=== PATIENT | male | born 1980 | race African-American/Black ===

== ENCOUNTER 2017-11-02 21:00 | Emergency (ER) | payer BC ==
[2017-11-02 21:07] VITALS: BP 153/85; BMI 44.0
[2017-11-02 21:57] LABS: BILIRUBIN,URINE NEGATIVE (NEGATIVE); BLOOD/HEMOGLOBIN,URINE 3+ (NEGATIVE); GLUCOSE, URINE NEGATIVE (NEGATIVE); KETONES,URINE NEGATIVE (NEGATIVE); LEUKOCYTE ESTERASE ,URINE 3+ (NEGATIVE); NITRITES,URINE NEGATIVE (NEGATIVE); PH,URINE 6.5 (5.0 - 8.0); PROTEIN,URINE 1+ (NEGATIVE); UROBILINOGEN,URINE NORMAL (NORMAL)
[2017-11-02] MEDS ORDERED: ROCEPHIN VIAL 500 MG 500 MG in NS 25 ML IV 25 ML IV ONE (22:02)
[2017-11-02] MEDS ORDERED: VIBRAMYCIN PO ONE ×2 (22:03→22:14)
[2017-11-02] MEDS ORDERED: LEVAQUIN TAB 500 MG PO STA (22:03)
--- NOTE | 2017-11-02 22:08 | DR.UPM ---
HPI - Time Seen Time seen: 22:04 - PCP Primary Care Physician: pipo - Complaint Chief Complaint Doctors Comments: Patient is complaining of dysuria for the past three days getting worst today with penile discharge and irritation at the urethra opening. States he has not had any new sexual partners and has not had any unprotected sex except with his . states she had a vaginal bacteria infection recently and she took antibiotics and was told not to have sex until she finished all the antibiotics and to use a condom but her spouse did not wait until she finished the antibiotics and they has sex during her treatment. Patient denies fever, chills, nausea, vomiting or hematuria. states he has never had any veneral diseases. Chief Complaint:: patient complained of having pain on urination and also has been having irritaion and discharge from penis since sunday - Reviewed Nurses Notes Reviewed: Yes - Source History Provided: Patient - Mode of Arrival Mode of Arrival: Ambulatory - Timing Onset of Chief Complaint: 11/07/17 - Duration Duration: Constant How lon Duration: Days Has not urinated for: 1 Min/Hrs: Hours - Context Onset: Spontaneous Urinary Symptoms: Dysuria, Frequency, Penile discharge History of: None - Severity Pain: Mild Inability to Void: None - Location Pain Location: Suprapubic - Quality Penile Discharge: White - Modifying Factors Medications: None - Associated Signs and Symptoms Associated Signs and Symptoms: None PMH - PMH Past Medical History: Yes Past Medical History: Dyslipidemia, GERD, Hypertension, [place] Past Surgical History: Yes Surgical History: CABG/Valve Surgery - Family History History of Family Medical Conditions: Yes Family Medical History: [place], Hypertension - Social History Does any household member use tobacco: No Alcohol Use: None Do you use any recreational Drugs:: No Lives With: Alone Lives Where: Home - infectious screening In the last 2 months have you had wt loss of >10#?: NO Have you had fever, night sweats or hemotysis?: No Have you traveled outside the country in the last 6 months?: No Isolation: Standard ROS - Review of Systems Constitutional: No Symptoms Reported. negative: See HPI, Chills, Diaphoresis, Fever, Malaise, Weakness, Irritable, Fatigue, Loss of Appetite, Other Eyes: No Symptoms Reported ENTM: No Symptoms Reported Respiratoy: No Symptoms Reported. negative: See HPI, Productive Cough, Non- Productive Cough, Moist Cough, Dry Cough, Hacking Cough, Barking Cough, Brassy Cough, Orthopnea, Short of Breath, Stridor, Wheezing, Hemoptysis, Other Cardiovascular: No Symptoms Reported. negative: See HPI, Chest Pain, Edema, Palpitations, Syncope, Cyanosis, Skin Mottling, Other Gastrointestinal/Abdominal: No Symptoms Reported. negative: See HPI, Abdominal Pain, Constipation, Diarrhea, Nausea, Vomiting, Food Intolerance, Other Genitourinary: No Symptoms Reported, Discharge, Dysuria, Frequency, Pain Neurological: No Symptoms Reported. negative: See HPI, Anxiety, Depressed, Emotional Problems, Headache, Numbness, Paresthesia, Pre-existing Deficit, Seizure, Tingling, Tremors, Weakness, Dizziness, Problems Walking, Speech Problem, Other Musculoskeletal: No Symptoms Reported Integumentary: No Symptoms Reported. negative: See HPI, Change in Color, Change in Hair/Nails, Dryness, Lesions, Lumps, Rash, Itching, Wound, Bruises, Juandice, Other Hematologic/Lymphatic: No Symptoms Reported Endocrine: No Symptoms Reported Psychiatric: No Symptoms Reported. negative: See HPI, Anxiety, Depression, Hallucinations, Excessive crying, Suicidal, Other PE - Vital Signs Vitals: Temperature 97.6 F Pulse Rate 88 Respiratory Rate 18 Blood Pressure 153/85 O2 Sat by Pulse Oximetry 96 - General Limitations: No Limitations General Appearance: Alert, In No Apparent Distress, Obese - Head Head Exam: Normal Inspection, Atraumatic, Normocephalic - Eyes Eye exam: Normal Appearance, PERRL, EOMI. negative: Scleral Icterus, Conjunctival Injection, Nystagmus, Miosis, Mydrasis, Periorbital Swelling, Periorbital Tenderness, Other - ENT ENT Exam: Normal Exam, Normal Oropharynx, Normal External Ear Exam, Mucous Membranes Moist, TM's Normal Bilaterally - Neck Neck Exam: Normal Inspection, Full ROM, Trachea Midline. negative: Tenderness, Meningismus, Lymphadenopathy, Thyromegaly, Other - Chest Chest Inspection: Normal Inspection, Symmetric Chest Wall Rise - Respiratory Respiratory Exam: Normal Lung Sounds Bilat Respiratory Exam: Bilateral Clear to Auscultation - Cardiovascular Cardiovascular Exam: Regular Rate, Normal Rhythm, Normal Heart Sounds. negative : Bradycardia, Tachycardia, Irregular Rhythm, Systolic Murmur, Diastolic Murmur , Rubs, Gallop, Clicks, JVD, +S1, +S2, +S3, +S4, Other - Abdominal Exam Abdominal Exam: Normal Inspection, Normal Bowel Sounds, Soft. negative: Distention, Tenderness, Guarding, Rebound, Rigidity, Dimnished Bowel Sounds, Hyperactive Bowel Sounds, Hypoactive Bowel Sounds, Organomegaly, Trauma, Incision, Ascites, Mass, Bruit, Pulsatile Mass, Hernia, Other Abdominal Tenderness: negative: RUQ, RLQ, LUQ, LLQ, Epigastrium, Suprapubic, Diffuse, Mild, Moderate, Severe, Other - Rectal Rectal Exam: Deferred - Genitourinary Exam: Male: Normal Inspection, Urethral Discharge, Induration (urethra orifice with slight erythema; purulent white discharge from glans penis) Scrotal Exam: Normal: Bilateral, Cremasteric Reflex Present: Bilateral - Extremities Extremities Exam: Normal Inspection, Full ROM, Normal Capillary Refill. negative: Tenderness, Edema, Joint Swelling, Calf Tenderness, Other - Back Back Exam: Normal Inspection, Full ROM. negative: Tenderness, (R) CVA Tenderness, (L) CVA Tenderness, Muscle Spasm, Paraspinal Tenderness, Vertebral Tenderness, Rashes, (R) Sciatic Notch Tenderness, (L) Sciatic Notch Tendern, (R ) Straight Leg Raise, (L) Straight Leg Raise, Other - Neurologic Neurological Exam: Alert, Oriented X3, CN II-XII Intact, Normal Gait, Reflexes Normal - Psychiatric Psychiatric Exam: Normal Affect, Normal Mood. negative: Depressed, Agitated, Anxious, Flat Affect, Manic, Homicidal Ideation, Suicidal Ideation, Other - Skin Skin Exam: Warm, Dry, Intact, Normal Color ROR - Labs Reviewed Laboratory Results Reviewed?: Yes (all lab results reviewed and discussed with patient.) - Diagnosis Discharge Problem: Urethritis, nonspecific Urinary tract infection Qualifiers: Encounter type: initial encounter - Discharge Plan Disposition: HOME, SELF-CARE Condition: Stable Prescriptions: Ciprofloxacin HCl [CIPRO 500 MG TAB *] 500 mg PO Q12H #20 tab Doxycycline Hyclate [Vibramycin] 100 mg PO BID PRN #20 cap PRN Reason: - Follow ups/Referrals Follow ups/Referrals: CARSON HERNANDEZ [Primary Care Provider] - 3 days - Instructions Instructions: Urinary Tract Infection, Adult, Urethritis, Adult, Dysuria
[2017-11-02] MEDS ORDERED: ROCEPHIN VIAL 1 GM IM ONE (22:11)
[2017-11-02] MEDS ORDERED: LEVAQUIN TAB 500 MG ONE (22:15)
[2017-11-02] MEDS ORDERED: ROCEPHIN VIAL 1 GM ONE (22:15)
[2017-11-02] MEDS ORDERED: XYLOCAINE 1% and EPINEPHRINE 1:100,000 ONE (22:17)
[2017-11-02 22:19] LABS: APPEARANCE,URINE CLOUDY (CLEAR); BACTERIA,URINE TRACE /HPF (NEGATIVE); COLOR,URINE YELLOW (YELLOW); RBC,URINE TNTC /HPF (NONE SEEN); SQUAMOUS EPITHELIAL CELL,UR RARE /HPF (NEGATIVE)
[2017-11-02 23:49] LABS: CHLAMYDIA TRACH URINE DETECTED (NOT DETECT)
== END 2017-11-02 22:53 | disposition home or self-care (01) ==
LOC: ER 21:11
DX: N34.2 Other urethritis (principal); N39.0 Urinary tract infection, site not specified
CPT/HCPCS: 81001; 87086; 87491; 87591; 96372; 99282; J0696; J2001